=== PATIENT | male | born 1975 | race African-American/Black ===

== ENCOUNTER 2018-10-23 20:29 | Emergency (ER) | payer OTHER ==
[2018-10-23 21:10] LABS: Lactic Acid 1.2 mmol/L (0.5-2.2)
[2018-10-23 21:17] LABS: Band 19 % (5-11); Eosinophils 2 % (0-10); Hemoglobin 13.1 g/dL (14.0-18.0); Lymphocytes 39 % (21-51); MDiff Complete? YES; Mean Corpuscular HGB CONC 30.5 g/dL (32.0-36.0); Mean Corpuscular Hemoglobin 23.3 pg (27.0-31.0); Mean Corpuscular Volume 76.5 fL (78.0-98.0); Mean Platelet Volume 9.8 fL (7.4-10.4); Microcytosis SLIGHT = 6-15 cells (100X) (0-5/hpf); Monocytes 5 % (0-10); Neutrophil 35 % (42-75); Ovalocytes SLIGHT = 2-5 cells (100X) (0-1/hpf); Platelet Count 172 thou/uL (130-400); Platelet Morphology Comment Appears Adequate; RBC Distribution Width 13.1 % (11.5-14.5); Red Blood Cell (RBC) Count 5.61 mill/uL (4.70-6.10); White Blood Cell (WBC) Count 6.7 thou/uL (4.8-10.8)
[2018-10-23 21:18] LABS: ALT (SGPT) 25 U/L (8-55); AST (SGOT) 27 U/L (5-34); Albumin 4.1 g/dL (3.5-5.0); Alkaline Phosphatase 66 U/L (40-150); Anion Gap 14 mmol/L (10-20); BUN (Urea Nitrogen) 14 mg/dL (8.9-20.6); Bilirubin, Total 0.6 mg/dL (0.2-1.2); Calc. Creatinine Clearance 0 mL/min (70-130); Carbon Dioxide 23 mmol/L (22-29); Chloride 102 mmol/L (98-107); Estimated GFR-MDRD 66; Globulin 2.6 g/dL (2.4-3.5); Glucose 150 mg/dL (70-105); Lipase 27 U/L (8-78); Potassium 3.6 mmol/L (3.5-5.1); Protein, Total 6.7 g/dL (6.0-8.3); Sodium 135 mmol/L (136-145)
[2018-10-23 21:24] LABS: Bilirubin Negative (Negative); Blood, Urine Negative (Negative); Clarity Clear (Clear); Glucose, Urine (Dipstick) Negative (Negative); Leukocyte Negative (Negative); Nitrite Negative (Negative); Protein, Urine (Dipstick) Negative (Neg-Trace)
--- NOTE | 2018-10-23 22:26 | CT ---
CT ABDOMEN AND PELVIS WITHOUT IV CONTRAST: 10/23/18 INDICATIONS: Fever and abdominal pain. Lung bases clear. Liver, spleen, pancreas unremarkable given limitations of a nonenhanced study. Adrenal glands and kidneys unremarkable. No hydronephrosis. Urinary bladder mildly distended. There is mild urinary bladder wall thickening. Small bowel loops are normal. Appendix appears normal. Colon unremarkable. Aorta normal caliber. No a denopathy identified. There is a small umbilical hernia noted in the anterior wall. IMPRESSION: 1. Evidence of mild urinary bladder wall thickening. Consider cystitis. 2. No acute intra-abdominal process identified. POS: [facility]
== END 2018-10-23 22:40 ==
LOC: NAV ERS 20:29
DX: R50.9 Fever, unspecified (principal); R19.7 Diarrhea, unspecified; R10.31 Right lower quadrant pain; R10.11 Right upper quadrant pain; E11.40 Type 2 diabetes mellitus with diabetic neuropathy, unspecified; K21.9 Gastro-esophageal reflux disease without esophagitis; E78.5 Hyperlipidemia, unspecified; I10 Essential (primary) hypertension; Z79.899 Other long term (current) drug therapy; Z79.4 Long term (current) use of insulin
CPT/HCPCS: 74176; 80053; 81003; 83605; 83690; 85025; 94760